=== PATIENT | male | born 1960 | race Hispanic/Latino ===

== ENCOUNTER 2017-11-25 10:38 | Outpatient (CLI) | payer OTHER ==
--- NOTE | 2017-11-25 15:23 | XRay Report ---
XRAY BILATERAL KNEE THREE VIEWS EACH: 11/25/17 10:38:00 CLINICAL: Bilateral knee pain. FINDINGS: Right: Severe osteoarthritis of the medial joint space with loss of the joint space, irregularity of the articular surfaces and large osteophytes. Widening of the lateral joint space with small osteophytes. Patellofemoral joint osteoarthritis with large osteophytes. No joint effusion. No fracture or dislocation. Normal soft tissues. Left: Severe osteoarthritis of the medial joint space with loss of the joint space, vacuum phenomenon and osteophytes. Widening of the lateral joint space with small osteophytes. A benign linear sclerotic lesion of the proximal tibia at the metaphyseal-diaphyseal junction. Patellofemoral joint osteoarthritis with osteophytes. No joint effusion. No fracture or dislocation. Normal soft tissues. IMPRESSION: Bilateral osteoarthritis with greater involvement of the medial joint spaces and the patellofemoral joints. A benign sclerotic lesion of the left proximal tibia.
== END 2017-11-25 10:39 | disposition home or self-care (01) ==
LOC: SPVIMAG 10:38
PROVIDERS: ATTEND Orthopaedic Surgery Sports Medicine
DX: M17.0 Bilateral primary osteoarthritis of knee (principal)